=== PATIENT | male | born 1950 | race Caucasian/White ===

== ENCOUNTER 2019-12-13 20:44 | Inpatient (IN) | payer MEDICARE, OTHER ==
[~2019-12-13] VITALS: Ht 188 cm; Wt 88.5 kg
[2019-12-13] MEDS ORDERED: SODIUM CHLORIDE 0.9% 1000ML 1,000 ML IV ONE (21:15)
[2019-12-13 21:18] LABS: BASOPHILS # (AUTO) 0.1 (0.0-0.1); BASOPHILS % 0.4 % (0.0-1.0); EOSINOPHILS # (AUTO) 0.2 (0.0-0.4); EOSINOPHILS % 1.3 % (0.0-6.0); HEMATOCRIT 46.4 % (38.2-49.6); HEMOGLOBIN 15.2 g/dL (14.0-18.0); LYMPHOCYTES # (AUTO) 1.5 (1.0-3.2); LYMPHOCYTES % 12.1 % (18.0-39.1); MEAN CORPUSCULAR HEMOGLOBIN 30.2 pg (28-32); MEAN CORPUSCULAR HGB CONC 32.8 g/dL (31-35); MEAN CORPUSCULAR VOLUME 92.2 fL (81-99); MONOCYTES # (AUTO) 0.8 (0.2-0.8); MONOCYTES % 6.4 % (4.4-11.3); NEUTROPHILS # (AUTO) 9.8 (2.1-6.9); NEUTROPHILS % 79.4 % (38.7-80.0); PLATELET COUNT 235 x10e3/uL (140-360); RED BLOOD COUNT 5.03 x10e6/uL (4.3-5.7); RED CELL DISTRIBUTION WIDTH 13.7 % (11.7-14.4)
[2019-12-13 21:40] LABS: ALANINE AMINOTRANSFERASE 27 IU/L (0-55); ALBUMIN/GLOBULIN RATIO 1.1 (0.8-2.0); ALKALINE PHOSPHATASE 91 IU/L (40-150); ANION GAP 13.1 mmol/L (8-16); BLOOD UREA NITROGEN 16 mg/dL (7-26); BUN/CREATININE RATIO 18 (6-25); CALCIUM 9.5 mg/dL (8.4-10.2); CARBON DIOXIDE 25 mmol/L (22-29); CHLORIDE 104 mmol/L (98-107); CREATINE KINASE 48 IU/L (30-200); CREATININE, SERUM 0.91 mg/dL (0.72-1.25); EST GLOMERULAR FILTRATION RATE > 60 ML/MIN (60-); GLUCOSE 108 mg/dL (74-118); POTASSIUM 4.1 mmol/L (3.5-5.1); SODIUM 138 mmol/L (136-145)
[2019-12-13 22:41] LABS: BILIRUBIN,URINE NEGATIVE (NEGATIVE); CLARITY,URINE SL CLOUDY (CLEAR); COLOR,URINE YELLOW (YELLOW); KETONES,URINE NEGATIVE (NEGATIVE); LEUKOCYTE ESTERASE ,URINE NEGATIVE (NEGATIVE); NITRITE,URINE NEGATIVE (NEGATIVE); PROTEIN,URINE DIPSTICK NEGATIVE (NEGATIVE); URINE UROBILINOGEN 1 mg/dL (0.2 - 1)
[2019-12-13 22:46] LABS: AMORPHOUS SEDIMENT,URINE MODERATE (FEW); BACTERIA,URINE FEW /HPF; EPITHELIAL CELLS,URINE RARE /LPF; RBC,URINE 0-5 /HPF (0-5); WBC,URINE (MAN) 0-5 /HPF (0-5)
[2019-12-14] VITALS (8 sets, daily range): BP systolic 112–122; BP diastolic 70–82
[2019-12-14] MEDS ORDERED: ULTRAM 50MG50 MG PO (01:55)
[2019-12-14] MEDS ORDERED: SYMBICORT 16010.2 GM INH (01:55)
[2019-12-14] MEDS: SODIUM CHLORIDE 0.9% 1000ML 1,000 ML IV SCH ×3 (02:53→18:31)
[2019-12-14] MEDS ORDERED: VENTOLIN HFA18 GM (03:02)
[2019-12-14] MEDS ORDERED: MECLIZINE HCL12.5 MG PO (03:02)
[2019-12-14] MEDS ORDERED: AFRIN15 ML (03:02)
[2019-12-14] MEDS ORDERED: SYMBICORT 16010.2 GM (03:02)
[2019-12-14] MEDS ORDERED: REFRESH PLUS1 EACH (03:02)
[2019-12-14] MEDS ORDERED: CYCLOBENZAPRINE10 MG PO (03:02)
[2019-12-14] MEDS ORDERED: LISINOPRIL10 MG PO (03:02)
[2019-12-14] MEDS ORDERED: CAFFEINE200 MG (03:02)
[2019-12-14] MEDS: ONDANSETRON HCL INJ 2MG/ML 2ML 2 MG/ML VIAL IV PRN ×2 (07:59→11:29)
[2019-12-14] MEDS ORDERED: PANTOPRAZOLE 40 MG 10ML VIAL IV ONE (10:30)
[2019-12-14] MEDS ORDERED: MECLIZINE HCL 12.5 MG TAB PO PRN (14:00)
[2019-12-14] MEDS: LISINOPRIL 10 MG TAB PO SCH (17:00)
[2019-12-15] VITALS (7 sets, daily range): BP systolic 108–149; BP diastolic 70–91
[2019-12-15] MEDS: SODIUM CHLORIDE 0.9% 1000ML 1,000 ML IV SCH ×3 (02:45→17:30)
[2019-12-15 06:21] LABS: BASOPHILS # (AUTO) 0.1 (0.0-0.1); BASOPHILS % 0.6 % (0.0-1.0); EOSINOPHILS # (AUTO) 0.2 (0.0-0.4); HEMATOCRIT 38.8 % (38.2-49.6); LYMPHOCYTES # (AUTO) 1.7 (1.0-3.2); LYMPHOCYTES % 17.7 % (18.0-39.1); MEAN CORPUSCULAR HEMOGLOBIN 31.6 pg (28-32); MEAN CORPUSCULAR HGB CONC 33.5 g/dL (31-35); MEAN CORPUSCULAR VOLUME 94.2 fL (81-99); MONOCYTES # (AUTO) 0.8 (0.2-0.8); MONOCYTES % 8.6 % (4.4-11.3); NEUTROPHILS # (AUTO) 6.7 (2.1-6.9); NEUTROPHILS % 70.7 % (38.7-80.0); PLATELET COUNT 180 x10e3/uL (140-360); RED BLOOD COUNT 4.12 x10e6/uL (4.3-5.7); RED CELL DISTRIBUTION WIDTH 13.7 % (11.7-14.4)
[2019-12-15 06:40] LABS: ALANINE AMINOTRANSFERASE 29 IU/L (0-55); ALBUMIN 3.3 g/dL (3.5-5.0); ALBUMIN/GLOBULIN RATIO 1.2 (0.8-2.0); ALKALINE PHOSPHATASE 71 IU/L (40-150); ANION GAP 12.6 mmol/L (8-16); BLOOD UREA NITROGEN 14 mg/dL (7-26); BUN/CREATININE RATIO 18 (6-25); CALCIUM 8.6 mg/dL (8.4-10.2); CARBON DIOXIDE 21 mmol/L (22-29); CHLORIDE 108 mmol/L (98-107); CREATININE, SERUM 0.76 mg/dL (0.72-1.25); EST GLOMERULAR FILTRATION RATE > 60 ML/MIN (60-); GLUCOSE 85 mg/dL (74-118); POTASSIUM 3.6 mmol/L (3.5-5.1); SODIUM 138 mmol/L (136-145)
[2019-12-15] MEDS ORDERED: ACETAMINOPHEN 325 MG TAB PO PRN (06:45)
[2019-12-15] MEDS: LISINOPRIL 10 MG TAB PO SCH ×2 (08:21→17:00)
[2019-12-15] MEDS: VANCOMYCIN 1GM/NS 250 ML 250 ML IV SCH (08:21)
[2019-12-15] MEDS ORDERED: BISACODYL 5 MG TAB EC PO ONE (09:30)
[2019-12-15] MEDS ORDERED: PEG (High)/E-LYTE SOLN 4,000 ML BTL PO ONE ×2 (09:30→16:00)
[2019-12-15] MEDS ORDERED: CITRATE OF MAGNESIA 300ML BOTTLE PO ONE ×2 (09:30→16:00)
[2019-12-15] MEDS: CEFEPIME 1GM/NS 0.9% 50 ML 50 ML IV SCH ×2 (11:03→23:30)
[2019-12-15] MEDS ORDERED: GADOBENATE DIMEGLUMINE 1 ML IV ONE (13:13)
[2019-12-15] MEDS: CARBIDOPA/LEVODOPA 25/100 TAB PO SCH (21:00)
[2019-12-16] VITALS (7 sets, daily range): BP systolic 109–126; BP diastolic 55–93
[2019-12-16] MEDS: SODIUM CHLORIDE 0.9% 1000ML 1,000 ML IV SCH ×3 (00:23→23:10)
[2019-12-16] MEDS: ONDANSETRON HCL INJ 2MG/ML 2ML 2 MG/ML VIAL IV PRN ×2 (04:15→09:06)
[2019-12-16 05:55] LABS: BASOPHILS # (AUTO) 0.1 (0.0-0.1); BASOPHILS % 0.5 % (0.0-1.0); EOSINOPHILS % 0.3 % (0.0-6.0); HEMATOCRIT 40.3 % (38.2-49.6); HEMOGLOBIN 13.3 g/dL (14.0-18.0); LYMPHOCYTES % 8.3 % (18.0-39.1); MEAN CORPUSCULAR HEMOGLOBIN 30.6 pg (28-32); MEAN CORPUSCULAR VOLUME 92.9 fL (81-99); MONOCYTES # (AUTO) 0.6 (0.2-0.8); MONOCYTES % 4.9 % (4.4-11.3); NEUTROPHILS # (AUTO) 9.8 (2.1-6.9); NEUTROPHILS % 85.5 % (38.7-80.0); PLATELET COUNT 157 x10e3/uL (140-360); RED BLOOD COUNT 4.34 x10e6/uL (4.3-5.7); RED CELL DISTRIBUTION WIDTH 13.3 % (11.7-14.4)
[2019-12-16] MEDS: MORPHINE SULFATE 2 MG/ML SYR 1ML IV PRN ×2 (06:00→20:50)
[2019-12-16 06:17] LABS: ALANINE AMINOTRANSFERASE 18 IU/L (0-55); ALBUMIN 3.2 g/dL (3.5-5.0); ALBUMIN/GLOBULIN RATIO 1.2 (0.8-2.0); ALKALINE PHOSPHATASE 73 IU/L (40-150); ANION GAP 14.4 mmol/L (8-16); BLOOD UREA NITROGEN 12 mg/dL (7-26); BUN/CREATININE RATIO 17 (6-25); CALCIUM 8.3 mg/dL (8.4-10.2); CARBON DIOXIDE 19 mmol/L (22-29); CHLORIDE 109 mmol/L (98-107); CREATININE, SERUM 0.72 mg/dL (0.72-1.25); EST GLOMERULAR FILTRATION RATE > 60 ML/MIN (60-); GLUCOSE 78 mg/dL (74-118); POTASSIUM 3.4 mmol/L (3.5-5.1); SODIUM 139 mmol/L (136-145)
[2019-12-16] MEDS: VANCOMYCIN 1GM/NS 250 ML 250 ML IV SCH (06:36)
[2019-12-16] MEDS: LISINOPRIL 10 MG TAB PO SCH ×2 (09:20→17:22)
[2019-12-16] MEDS: CARBIDOPA/LEVODOPA 25/100 TAB PO SCH ×3 (09:20→20:57)
[2019-12-16] MEDS: RASAGILINE 1 MG TAB PO SCH (09:20)
[2019-12-16] MEDS: CEFEPIME 1GM/NS 0.9% 50 ML 50 ML IV SCH ×2 (12:12→23:10)
[2019-12-16] MEDS ORDERED: PROPOFOL IV EMULSION 10 MG/ML 20 ML VIAL ONE (12:34)
[2019-12-16] MEDS ORDERED: LIDOCAINE HCL 2% LOCAL INJ 5 ML SDV VIAL INJ ONE (12:34)
[2019-12-17] VITALS (8 sets, daily range): BP systolic 115–126; BP diastolic 66–77
[2019-12-17] MEDS: MORPHINE SULFATE 2 MG/ML SYR 1ML IV PRN ×3 (05:10→17:21)
[2019-12-17] MEDS: SODIUM CHLORIDE 0.9% 1000ML 1,000 ML IV SCH ×3 (07:44→17:55)
[2019-12-17] MEDS: VANCOMYCIN 1GM/NS 250 ML 250 ML IV SCH ×2 (07:44→21:23)
[2019-12-17] MEDS: CARBIDOPA/LEVODOPA 25/100 TAB PO SCH ×3 (08:39→21:23)
[2019-12-17] MEDS: LISINOPRIL 10 MG TAB PO SCH ×2 (08:40→17:15)
[2019-12-17] MEDS: RASAGILINE 1 MG TAB PO SCH (08:40)
[2019-12-17] MEDS: CEFEPIME 1GM/NS 0.9% 50 ML 50 ML IV SCH ×2 (11:17→23:00)
[2019-12-17] MEDS: SENNOSIDES 8.6 MG TAB PO SCH (11:17)
[2019-12-17] MEDS: ONDANSETRON HCL INJ 2MG/ML 2ML 2 MG/ML VIAL IV PRN ×2 (12:42→17:21)
[2019-12-17] MEDS: DOCUSATE SODIUM 100 MG CAP PO SCH (17:15)
[2019-12-18] VITALS (7 sets, daily range): BP systolic 111–130; BP diastolic 66–81
[2019-12-18] MEDS: SODIUM CHLORIDE 0.9% 1000ML 1,000 ML IV SCH ×3 (01:30→17:27)
[2019-12-18] MEDS: MORPHINE SULFATE 2 MG/ML SYR 1ML IV PRN ×6 (05:36→23:01)
[2019-12-18] MEDS: VANCOMYCIN 1GM/NS 250 ML 250 ML IV SCH ×2 (09:00→22:00)
[2019-12-18] MEDS: RASAGILINE 1 MG TAB PO SCH (09:21)
[2019-12-18] MEDS: SENNOSIDES 8.6 MG TAB PO SCH (09:21)
[2019-12-18] MEDS: DOCUSATE SODIUM 100 MG CAP PO SCH ×2 (09:21→16:19)
[2019-12-18] MEDS: LISINOPRIL 10 MG TAB PO SCH ×2 (09:21→16:20)
[2019-12-18] MEDS: CARBIDOPA/LEVODOPA 25/100 TAB PO SCH ×3 (09:21→22:00)
[2019-12-18] MEDS: CEFEPIME 1GM/NS 0.9% 50 ML 50 ML IV SCH ×2 (12:00→23:00)
[2019-12-18] MEDS: ONDANSETRON HCL INJ 2MG/ML 2ML 2 MG/ML VIAL IV PRN (19:13)
[2019-12-18] MEDS ORDERED: FAMOTIDINE 20 MG TAB PO ONE (23:00)
[2019-12-19] VITALS (10 sets, daily range): BP systolic 113–136; BP diastolic 69–88
[2019-12-19] MEDS: SODIUM CHLORIDE 0.9% 1000ML 1,000 ML IV SCH ×2 (00:46→09:30)
[2019-12-19] MEDS: MORPHINE SULFATE 2 MG/ML SYR 1ML IV PRN ×5 (04:03→20:49)
[2019-12-19] MEDS: CEFEPIME 1GM/NS 0.9% 50 ML 50 ML IV SCH (07:08)
[2019-12-19] MEDS: VANCOMYCIN 1GM/NS 250 ML 250 ML IV SCH (08:05)
[2019-12-19] MEDS: SENNOSIDES 8.6 MG TAB PO SCH (08:07)
[2019-12-19] MEDS: RASAGILINE 1 MG TAB PO SCH (08:07)
[2019-12-19] MEDS: LISINOPRIL 10 MG TAB PO SCH ×2 (08:07→16:19)
[2019-12-19] MEDS: CARBIDOPA/LEVODOPA 25/100 TAB PO SCH ×3 (08:07→20:49)
[2019-12-19] MEDS: DOCUSATE SODIUM 100 MG CAP PO SCH ×2 (08:07→16:18)
[2019-12-19] MEDS ORDERED: BUPROPION HCL 75 MG TAB PO SCH (11:30)
[2019-12-19] MEDS ORDERED: CEFEPIME 1GM/NS 0.9% 50 ML 50 ML IV SCH (18:00)
[2019-12-20] MEDS ORDERED: COLLAGENASE 5 GM TUBE TOP SCH (09:00)
== END 2019-12-19 21:21 | DRG 872 ==
LOC: ER 20:58 → ERHOLD 12-14 01:32 → MED/SURG3 12-14 02:25
PROVIDERS: ADMIT Internal Medicine; ATTEND Internal Medicine
PROC: 0DBK8ZX Excision of Ascending Colon, Via Natural or Artificial Opening Endoscopic, Diagnostic (ICD-10-PCS; principal; 2019-12-16 14:22)
DX: A41.89 Other specified sepsis (principal); F32.1 Major depressive disorder, single episode, moderate; K56.7 Ileus, unspecified; G93.40 Encephalopathy, unspecified; G20 Parkinson's disease; B95.2 Enterococcus as the cause of diseases classified elsewhere; R62.7 Adult failure to thrive; K59.00 Constipation, unspecified; Z68.25 Body mass index [BMI] 25.0-25.9, adult; S46.002A Unspecified injury of muscle(s) and tendon(s) of the rotator cuff of left shoulder, initial encounter; W19.XXXA Unspecified fall, initial encounter; Z74.09 Other reduced mobility; Z11.59 Encounter for screening for other viral diseases; M51.34 Other intervertebral disc degeneration, thoracic region; K63.5 Polyp of colon; I71.2 Thoracic aortic aneurysm, without rupture; L89.151 Pressure ulcer of sacral region, stage 1; K57.30 Diverticulosis of large intestine without perforation or abscess without bleeding; K64.8 Other hemorrhoids; I10 Essential (primary) hypertension; Z74.01 Bed confinement status; K57.90 Diverticulosis of intestine, part unspecified, without perforation or abscess without bleeding
CPT/HCPCS: 36415; 45380; 70450; 71045; 71250; 72157; 72158; 74018; 74176; 80053; 80202; 81001; 82550; 82553; 83605; 84484; 85025; 87040; 87071; 87186; 87205; 88305; 93005; 93306; 96361; 97139; 99251; 99284; J0692; J2001; J2270; J2405; J3370; J7030; U0002